=== PATIENT | male | born 1960 | race Caucasian/White ===

== ENCOUNTER → 2017-05-29 | Outpatient (CLI) | payer OTHER ==
[~2017-05-29] MED LIST: ASPIRIN325 MG PO; ATORVASTATIN CA40 MG PO; CLOPIDOGREL75 MG PO; LIPITOR20 MG PO; LISINOPRIL2.5 MG PO; LO-DOSE ASPIRIN81 M1 PO; METOPROLOL SUCC25 MG PO; NITROSTAT0.4 MG SL
== END | disposition home or self-care (01) ==
LOC: CDC 12:51
DX: Z01.810 Encounter for preprocedural cardiovascular examination (principal); I25.2 Old myocardial infarction
CPT/HCPCS: 93000